=== PATIENT | female | born 1995 | race Caucasian/White ===

== ENCOUNTER 2017-07-07 12:32 | Emergency (ER) | payer OTHER ==
[~2017-07-07] VITALS: Ht 162.6 cm; Wt 93.4 kg
[~2017-07-07 12:32] MED LIST: COLACE100 MG PO; NORCO1 TA2 PO
[2017-07-07 14:06] LABS: BASOPHIL % 0.5 % (0-2); PLATELET COUNT 329 x10^3mcL (130-400); RED CELL DISTRIBUTION WIDTH 13.6 % (11.5-14.5)
[2017-07-07 14:21] LABS: UA SPECIFIC GRAVITY >=1.030 (1.005-1.035); microscopic required? YES; urine erythrocyte 2+ (NEGATIVE)
[2017-07-07 15:57] VITALS: BP 122/80
== END 2017-07-07 15:57 | disposition home or self-care (01) ==
LOC: ED 12:32
PROVIDERS: Emergency Medicine
DX: R10.2 Pelvic and perineal pain (principal); G43.909 Migraine, unspecified, not intractable, without status migrainosus; Z98.890 Other specified postprocedural states
CPT/HCPCS: 87491; 87591; J1885; Q0162

== ENCOUNTER 2017-07-16 19:44 | Emergency (ER) | payer OTHER ==
[~2017-07-16] VITALS: Ht 162.6 cm; Wt 94.3 kg
[2017-07-16 23:41] VITALS: BP 102/62
== END 2017-07-16 23:41 | disposition home or self-care (01) ==
LOC: ED 19:44
DX: G43.909 Migraine, unspecified, not intractable, without status migrainosus (principal); Z90.49 Acquired absence of other specified parts of digestive tract
CPT/HCPCS: J1885; J2765

== ENCOUNTER 2018-01-15 18:52 | Emergency (ER) | payer OTHER ==
[~2018-01-15] VITALS: Ht 162.6 cm; Wt 96.2 kg
[2018-01-15 19:08] VITALS: Ht 162.6 cm; Wt 96.2 kg
[2018-01-15 20:50] VITALS: BP 125/71
== END 2018-01-15 20:50 | disposition home or self-care (01) ==
LOC: ED 18:52
DX: N39.0 Urinary tract infection, site not specified (principal); R42 Dizziness and giddiness; Z90.49 Acquired absence of other specified parts of digestive tract
CPT/HCPCS: 82962

== ENCOUNTER 2019-04-16 09:50 | Emergency (ER) | payer OTHER ==
[~2019-04-16] VITALS: Ht 162.6 cm; Wt 97.1 kg
[2019-04-16 10:10] VITALS: BP 141/83; Ht 162.6 cm; Wt 97.1 kg
== END 2019-04-16 12:15 | disposition home or self-care (01) ==
LOC: ED 09:50
DX: H60.92 Unspecified otitis externa, left ear (principal); G43.909 Migraine, unspecified, not intractable, without status migrainosus; F41.9 Anxiety disorder, unspecified; Z90.49 Acquired absence of other specified parts of digestive tract